=== PATIENT | male | born 2005 | race African-American/Black ===

== ENCOUNTER 2023-05-17 11:53 | Emergency (ER) | payer MEDICAID, OTHER ==
[~2023-05-17] VITALS: Ht 170.2 cm; Wt 76.0 kg
[~2023-05-17 11:53] MED LIST: METO-293 MT; PROT20 MT
[2023-05-17 11:58] VITALS: TEMP 98.4; O2SAT 100
[2023-05-17] MEDS ORDERED: IBUPROFEN 600MG TABLET PO ONE (12:15)
[2023-05-17 13:40] VITALS: BP 129/89; PULSE 68; RESP 14
== END 2023-05-17 13:40 | disposition home or self-care (01) ==
LOC: ER 11:53
DX: M54.9 Dorsalgia, unspecified (principal); J45.909 Unspecified asthma, uncomplicated
CPT/HCPCS: 99283

== ENCOUNTER 2023-07-11 13:38 | Emergency (ER) | payer MEDICAID, OTHER ==
[~2023-07-11] VITALS: Ht 172.7 cm; Wt 72.0 kg
[2023-07-11 13:42] VITALS: BP 125/76; RESP 20; TEMP 98.2; O2SAT 100
[2023-07-11 13:46] VITALS: PULSE 108
[2023-07-11] MEDS ORDERED: IBUP-1525 MT (20:28)
[2023-07-11] MEDS ORDERED: ACET-2708 MT (20:28)
== END 2023-07-11 22:40 | disposition home or self-care (01) ==
LOC: ER 13:38
DX: M25.562 Pain in left knee (principal); J45.909 Unspecified asthma, uncomplicated
CPT/HCPCS: 73562; 99283; Z7610; L1830

== ENCOUNTER 2023-09-06 22:51 | Emergency (ER) | payer MEDICAID, OTHER ==
[~2023-09-06] VITALS: Ht 177.8 cm; Wt 69.0 kg
[~2023-09-06 22:51] MED LIST changes: +ACET-2708 MT; +IBUP-1525 MT
[2023-09-06 23:26] VITALS: O2SAT 100
[2023-09-07] MEDS ORDERED: MUPI1OIN4 TP (01:52)
[2023-09-07 02:10] VITALS: BP 121/62; PULSE 50; RESP 16; TEMP 97.5
== END 2023-09-07 02:10 | disposition home or self-care (01) ==
LOC: ER 22:51
DX: S31.21XA Laceration without foreign body of penis, initial encounter (principal); X58.XXXA Exposure to other specified factors, initial encounter; Y93.89 Activity, other specified; Y92.89 Other specified places as the place of occurrence of the external cause; Y99.8 Other external cause status
CPT/HCPCS: 71045; 99283

== ENCOUNTER 2024-11-08 15:42 | Emergency (ER) | payer MEDICAID ==
[~2024-11-08] VITALS: Ht 177.8 cm; Wt 69.0 kg
[~2024-11-08 15:42] MED LIST changes: +MUPI1OIN4 TP
[2024-11-08 15:49] VITALS: O2SAT 98
[2024-11-08 15:50] VITALS: TEMP 36.8; O2SAT 98
[2024-11-08] MEDS ORDERED: IBUP-2029 MT (17:23)
[2024-11-08 17:35] VITALS: BP 137/67; PULSE 89; RESP 16
[2024-11-08] MEDS: IBUPROFEN 600MG TABLET PO ONE (17:35)
== END 2024-11-08 18:05 | disposition home or self-care (01) ==
LOC: ER 15:42
DX: S62.002A Unspecified fracture of navicular [scaphoid] bone of left wrist, initial encounter for closed fracture (principal); Z79.899 Other long term (current) drug therapy; V00.131A Fall from skateboard, initial encounter; Y93.51 Activity, roller skating (inline) and skateboarding; Y92.89 Other specified places as the place of occurrence of the external cause; Y99.8 Other external cause status
CPT/HCPCS: 99283; 73110; 29125; A6449